=== PATIENT | male | born 1945 | race Hispanic/Latino ===

== ENCOUNTER 2017-03-19 10:44 | Outpatient (CLI) | payer MEDICARE, OTHER ==
[2017-03-19 12:00] LABS: Blood Urea Nitrogen 26 mg/dL (9-20)
[2017-03-19] MEDS ORDERED: NACL ONE (12:29)
--- NOTE | 2017-03-19 15:39 | Cat Scan Report ---
CT LUMBAR SPINE WITH AND WITHOUT CONTRAST INDICATION: Lower back pain. COMPARISON: None similar. FINDINGS: Lumbar spine CT performed before and after IV contrast. Axial, sagittal and coronal reconstructed images demonstrate moderate multilevel spinal degenerative changes, including spurring and disc degeneration with vacuum phenomena. Approximately 2 mm retrolisthesis of L2 over L3. Nonaneurysmal abdominal aorta. Normal paraspinal soft tissues. No focal suspicious abnormal enhancement. On the obtained axial images: T12-L1 grossly unremarkable. L1-L2 suggests partial disc calcification/obliteration posteriorly and spurring, greatest left paracentral to foraminal with narrowing/undercutting, axial image 25, series 4. L2-L3 additionally also demonstrate bilateral facet arthropathy, right greater than left. AP thecal sac caliber estimated at 0.9 cm, axial image 79, series 3. L3-L4 suspicious for diffuse disc bulge/possible spinal stenosis with AP thecal sac caliber approximately 0.6 cm, axial image 106, series 3. Slight bilateral facet arthropathy. Old healed left L3 transverse process fracture. L4-L5 also demonstrates diffuse disc bulge with AP thecal sac caliber of approximately 0.5 - 0.6 cm, image 131, series 2. Posterior epidural fat preserved. Bilateral facet arthropathy. L5-S1 suggests mild diffuse disc bulge, though predominantly ventral epidural without significant spinal stenosis. CONCLUSION: Multilevel lumbar spondylosis noted, as above. Thank you for the opportunity to participate in this patient's care.
== END 2017-03-19 10:45 | disposition home or self-care (01) ==
LOC: CT 10:44
PROVIDERS: ATTEND Internal Medicine
DX: M47.896 Other spondylosis, lumbar region (principal); M12.88 Other specific arthropathies, not elsewhere classified, other specified site
CPT/HCPCS: 36415; 72133; 82565; 84520; Q9967